=== PATIENT | male | born 1995 | race Caucasian/White ===

== ENCOUNTER 2017-05-12 22:03 | Emergency (ER) | payer SELFPAY ==
[~2017-05-12] VITALS: Ht 182.9 cm; Wt 100.0 kg
[2017-05-12 22:43] VITALS: BP 135/90; PULSE 65; RESP 18; O2SAT 99
[2017-05-12] MEDS ORDERED: _Amoxicillin-Clavulanate 875-125 mg Tablet PO SCH (23:25)
--- NOTE | 2017-05-12 23:25 | ED.REPORT ---
HPI-General Illness Date of Service May 12, 2017 ED Provider: Misael Chapman MD A 22 year old male with no pertinent medical history presents to the ED complaining of right sided dental pain that began yesterday. Patient describes the pain as a sore ache and rates his current pain as a 7/10. He believes that he fracture the tooth while eating "burned chicken parmesan". The pain begins in the upper, right jaw and radiates down and across the face. Patient also currently endorses facial pain and a mild headache at this time. The pain is reportedly relieved when the patient smokes. He denies any fever, chills, nausea , vomiting, chest pain, SOB, abdominal pain, diarrhea, constipation, numbness, weakness, hematochezia or hematuria. The patient does not currently have a dentist. No other complaints at this time. Nursing Notes Stated Complaint: INFECTED TOOTH Chief Complaint: Dental Nursing Notes Reviewed: Yes Allergies: Coded Allergies: No Known Allergies (Unverified , 05/12/17) General Time Seen by MD: 23:09 Chief Complaint Other (Dental Pain) Hx Obtained From: Patient Arrived By: Walk-in Onset Occurred: Yesterday Symptom Duration: Since onset Location: : Mouth (Dental) Quality: Aching (Soreness), Painful Radiation: : Jaw Severity: Current: Pain level 7 out of 10 Severity: Maximum: Pain level 7 out of 10 Associated with: Reports: Headache, Denies: Abdominal pain, Chest pain, Fever, Nausea, Numb extremities, Shortness of breath, Vomiting, Weakness Pertinent Negative: Pt denies other symptoms Pertinent Negative: Exacerbated by nothing Recent Healthcare: No recent doctor visit, No recent hospitalization Past Medical History Past Medical History None reported. Past Surgical History None reported. Smoking History Current Every Day Smoker (1 pack per day) Social History Alcohol Use: "Social" Drug Use: THC Other Social History: Local resident Ambulatory Status Independent Review of Systems Dental pain Facial pain Full Review of Systems Constitutional: Denies: Chills, Fever Respiratory: Denies: Shortness of breath Cardiovascular: Denies: Chest pain GI: Denies: Abdominal pain, Constipation, Diarrhea, Hematochezia, Nausea, Vomiting Male: Denies Hematuria Neurologic: Denies: Headache, Numbness, Vision change, Weakness Complete sys rev & neg: except as marked. Physical Exam Nursing note and vitals reviewed. Constitutional: Well-developed, well-nourished. Not diaphoretic. Head: Normocephalic and atraumatic. No malocclusion. No sinus tenderness. Mouth/Throat: Tenderness to the right upper molar. No evidence of periapical abscess. Oropharynx is clear and moist. No oropharyngeal exudate. Eyes: EOMI. Pupils are equal, round, and reactive to light. Neck: Supple, no tracheal deviation. No cervical adenopathy. Cardiovascular: Normal rate, regular rhythm. Equal and intact distal pulses throughout. Pulmonary/Chest: Effort normal and breath sounds normal. No respiratory distress. Abdominal: Soft. No distension. Musculoskeletal: Range of motion grossly intact, moving all extremities. Neurological: AOx3. Grossly nonfocal exam. Strength and sensation intact and equal to bilateral upper and lower extremities. Skin: Warm and dry, no rashes or pallor appreciated. Psychiatric: Appropriate mood and affect. Behavior appears normal. Vital Signs Vital Signs Date Time Temp Pulse Resp B/P Pulse Ox O2 Delivery O2 Flow Rate FiO2 05/12/17 23:43 36.9 72 14 122/68 98 Room Air 05/12/17 22:43 36.7 65 18 135/90 99 Room Air Re-Eval/Medical Decision Med Decision/Clinical Course Well-appearing 22-year-old male presenting to the ED for evaluation of right upper dental pain. No evidence of periapical abscess on examination. Extraocular movements intact; doubt significant sinus involvement or spread into the periorbital region. Afebrile, nontoxic appearing. Headache is mild, only present with the pain. Very careful return precautions were discussed and the patient was agreeable to the plan as stated. He will be discharged with a prescription for Augmentin and instructions to follow up with dentistry tomorrow. Time of Eval: 23:27 Patient Status: Condition improved Re-Evaluation/Progress Note: Recommended treatment plan is discussed with the patient. All questions are addressed. He understands and agrees to follow up with a dentist. Counseled Regarding: Diagnosis, Need for follow-up, When/why to return to ED Discharge & Departure Primary Impression: Pain, dental Additional Impression: Toothache Disposition: Home Discharge Condition All VS Reviewed: Yes Condition: Improved Patient Instructions: Acute Dental Trauma (ED), Toothache (ED) Additional Instructions: Thank you for trusting us with your care this evening. Your emergency department examination is reassuring that there is no acute cause that would require admission to the hospital or other interventions at this time. Take full course of Augmentin as directed. Take 400mg of ibuprofen every 6 hours as needed for pain. Please schedule a follow up appointment with the referred dentist in the next 1- 2 days for evaluation. Please return to the emergency department for any new or worsening symptoms including any headache, visual disturbances, worsening pain, high fever, chills , increased redness, swelling, or pustule drainage. [facility] [address] [phone] Referrals: NOPCP (PCP) [facility] Scribe Attestation Portions of this note were transcribed by Dinesh Villalba. I, Dr. Chapman personally performed the history, physical exam and medical decision-making; I reviewed and confirmed the accuracy of the information in the transcribed note. Signed by: Johnnie Flores, 05/12/17 [id number]. Misael Chapman MD May 12, 2017 23:25 DINESH VILLALBA May 12, 2017 23:36
[2017-05-12 23:43] VITALS: BP 122/68; PULSE 72; RESP 14; O2SAT 98
== END 2017-05-12 23:44 | disposition home or self-care (01) ==
LOC: SED 22:03
DX: K08.89 Other specified disorders of teeth and supporting structures (principal); R51 Headache; F17.200 Nicotine dependence, unspecified, uncomplicated